=== PATIENT | male | born 1990 | race Caucasian/White ===

== ENCOUNTER → 2024-01-28 14:48 | Outpatient (BNVA) | payer SELFPAY | PROVIDERS: Visit Provider Physician Assistant Medical | DX: Z02.79 Encounter for issue of other medical certificate (principal) ==

== ENCOUNTER → 2024-08-26 10:26 | Outpatient (BNVA) | payer SELFPAY | PROVIDERS: Visit Provider Physician Assistant Medical | DX: Z02.79 Encounter for issue of other medical certificate (principal) ==

== ENCOUNTER 2025-04-13 09:27 | Outpatient (AMB) | payer MEDICARE, SELFPAY ==
--- NOTE | 2025-04-13 10:21 | A.OFFPC_ITS ---
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 ?? Prior PCP:? No recent PCP Last office visit/CPE:? Many yrs Acute issue(s):? Est Care ?? PMHx:? Denies SurgHx:? None FHx:? Dad: DM. Mom: Unknown. SocHx: Nonsmoker, EtOH: None. No drugs PFSH Family History (Updated 04/13/25 @ 10:26 by CHIARA Koenig) Father Diabetes Social History (Updated 04/13/25 @ 10:26 by CHIARA Koenig) Housing: Apartment Patient Tobacco Use Status: Never used Tobacco e-Cigarette/Vaping Use: Never Used Second Hand Smoke Exposure: Yes Use of substances other than those prescribed or required for medical reasons: No service: No Current occupational status: employed Current occupation: public transit bus driver Current occupational exposures/hazards: No Cognitive needs: No Hearing needs: No Vision needs: Yes Questionnaire PHQ-9 Over the last 2 weeks, how often have you been bothered by any of the following problems? 1. Little interest or pleasure in doing things: not at all 2. Feeling down, depressed, or hopeless: not at all 3. Trouble falling or staying asleep, or sleeping too much: not at all 4. Feeling tired or having little energy: not at all 5. Poor appetite or overeating: not at all 6. Feeling bad about yourself - or that you are a failure or have let yourself or your family down: not at all 7. Trouble concentrating on things, such as reading the newspaper or watching television: not at all 8. Moving or speaking so slowly that other people could have noticed. Or the opposite - being so fidgety or restless that you have been moving around a lot more than usual: not at all 9. Thoughts that you would be better off or of hurting yourself in some way: not at all Total score: 0 Depression Screening Interpretation: Negative Depression Screening Done: Yes 40498 - PHQ-9 Billing: Yes Source: Developed by Drs. Jamaal Marte, Yazmin Dangelo, Alex Phillips and colleagues, with an educational hill from [employer]. Thrive Questionnaire Date Thrive assessed: 04/13/25 I am a: Patient What is your living situation today?: I have a steady place to live Within the past 12 months, did the food you bought not last and you didn't have the money to get more?: Never true Within the past 12 months, did you worry whether your food would run out before you got money to buy more?: Never true Do you have trouble paying for medicines?: No Do you have trouble getting transportation to medical appointments?: No Do you have trouble paying your heating and electricity bill?: No Do you have trouble taking care of your child, family member or friend?: No Do you have trouble with day-to-day activities such as bathing, preparing meals, shopping, managing finances, etc.?: No Are you currently unemployed and looking for a job?: No Are you interested in more education?: No Please select the resources that you would like help with: None Currently or been in a relationship where the following occur: No concerns reported THRIVE Score: 0 AUDIT C Alcohol Use Questionnaire (AUDIT-C) 1. How often do you have a drink containing alcohol?: Never 3. How often do you have six or more drinks on one occasion?: Never Total Score: 0 Score Reviewed/Action Taken: No RANDI-7 AMB Questionnaire RANDI-7 Date RANDI - 7 assessed: 04/13/25 Feeling nervous, anxious, or on edge: 0 = Not at all Not being able to stop or control worryin = Not at all Worrying too much about different things: 0 = Not at all Trouble relaxin = Not at all Being so restless that it is hard to sit still: 0 = Not at all Becoming easily annoyed or irritable: 0 = Not at all Feeling afraid as if something awful might happen: 0 = Not at all Total RANDI-7 score (0-4 normal; 5-9 mild; 10-14 moderate; 15-21 severe): 0 Source: Developed by Drs. Jamaal Marte, Yazmin Dangelo, Alex Phillips and colleagues, with an educational hill from [employer]. RANDI-7 Assessment Billing RANDI-7 Assessment Tool: RANDI-7 Assessment 49808 Physical exam (Primary Care) Vital Signs: Last Vital Signs Temp 98.7 F 04/13/25 10:27 Pulse 65 04/13/25 10:27 Resp 16 04/13/25 10:27 BP 100/80 04/13/25 10:27 Pulse Ox 98 04/13/25 10:27 Oxygen Delivery Method Room Air 04/13/25 10:27 BMI result Body Mass Index 27.9 Tobacco/Smoking Status: Tobacco use Status Tobacco use date assessed 04/13/25 04/13/25 10:31 Patient Tobacco Use Status Never used Tobacco 04/13/25 10:31 e-Cigarette/Vaping Use Never Used 04/13/25 10:31 PHQ-9: PHQ-9 Score PHQ-9: Total score 0 04/13/25 10:49 Depression Screening Interpretation: Negative Thrive Assessment: Date of Thrive Assessment Date Thrive assessed 04/13/25 04/13/25 10:31 Currently or been in a relationship where the following occur: No concerns reported Coding Level of Care Code New Pt Level 3 (63515) Diagnoses Screening for STD (sexually transmitted disease) Z11.3 Adult general medical exam Z00.00 Additional Codes RANDI-7 Assessment Billing - RANDI-7 Assessment Tool: RANDI-7 Assessment 33384 ([id number]) PHQ-9 - 63585 - PHQ-9 Billing: Yes ([id number]) Assessment & Plan Assessment & Plan (1) Screening for STD (sexually transmitted disease): Code(s): Z11.3 - Encounter for screening for infections with a predominantly sexual mode of transmission Category: Medical Plan: Asymptomatic Will run test for STD/STI (2) Adult general medical exam: Code(s): Z00.00 - Encounter for general adult medical examination without abnormal findings Category: Medical Plan: Exam today within normal limits Encouraged healthy diet with active lifestyle and plenty of exercise Will review lab work with patient at upcoming appointment Orders: Orders Comprehensive [place]. Panel Fast Today Z00.00 - Encounter for general adult medical examination without abnormal findings Complete Blood Count Auto Diff Today Z00.00 - Encounter for general adult medical examination without abnormal findings Microalbumin, Random (w Creat) Today I10 - Essential (primary) hypertension UA CC w/rflx Micro + Cult Today Z00.00 - Encounter for general adult medical examination without abnormal findings Hepatitis B,C Profile Today Z11.3 - Encounter for screening for infections with a predominantly sexual mode of transmission HIV Ab/Ag Today Z11.3 - Encounter for screening for infections with a predominantly sexual mode of transmission Syphilis Screen Today Z11.3 - Encounter for screening for infections with a predominantly sexual mode of transmission TSH reflex Free T4 Today Z00.00 - Encounter for general adult medical examination without abnormal findings Lipid Panel Today Z00.00 - Encounter for general adult medical examination without abnormal findings CT NG by PCR Urine Today Z11.3 - Encounter for screening for infections with a predominantly sexual mode of transmission
[2025-04-13 10:27] VITALS: BP 100/80; PULSE 65; RESP 16; TEMP 37.1; O2SAT 98; BMI 27.9
== END 2025-04-13 11:07 | disposition home or self-care (01) ==
LOC: HO.HMCFM 09:28
PROVIDERS: PCP Family Medicine; Visit Provider Family Medicine
DX: Z11.3 Encounter for screening for infections with a predominantly sexual mode of transmission (principal); Z00.00 Encounter for general adult medical examination without abnormal findings

== ENCOUNTER 2025-04-13 09:27 | Outpatient (REF) | payer MEDICARE, SELFPAY ==
[2025-04-13 14:13] LABS: MANUAL DIFF FLAG NO
[2025-04-13 14:17] LABS: Hematocrit 48.4 % (42.0-52.0); Hemoglobin 16.3 g/dl (14.0-18.0); Imm Gran Abs Auto 0.04 X10*3/uL (0.00-0.03); Imm Gran Pct Auto 0.7 % (0.0-0.4); Lymphocytes Absolute Auto 1.9 X10*3/uL (1.2-4.9); Mean Corpuscular HGB Conc 33.7 g/dl (31.0-36.0); Mean Corpuscular Hemoglobin 29.6 pg (27.0-33.0); Mean Corpuscular Volume 87.8 fL (80.0-98.0); NRBC Abs Auto 0.000 X10*3/uL (0.0-0.012); NRBC Pct Auto 0.0 /100WBC (0.0-0.2); Platelet Count 246 X10*3/uL (160-400); Red Blood Count 5.51 X10*6/uL (4.60-5.80); White Blood Count 5.6 X10*3/uL (4.8-10.8)
[2025-04-13 14:32] LABS: Appearance Urine Cloudy; Glucose Urine UA Negative (Negative); PH 8.0 (5.0-9.0); Specific Gravity - Urine 1.020 (1.005-1.025)
[2025-04-13 14:38] LABS: Alanine Aminotransferase 46 U/L (0-40); Albumin Level 5.1 g/dL (3.5-5.0); Alkaline Phosphatase 78 U/L (39-117); Anion Gap 9 (12-20); Aspartate Amino Transferase 46 U/L (5-37); Blood Urea Nitrogen 13 mg/dL (9-16); Calcium 9.9 mg/dL (8.4-10.2); Carbon Dioxide 32 mmol/L (22-29); Chloride 104 mmol/L (96-108); Cholesterol 254 mg/dL (<200); Estimated Glomerular Filt Rate > 60; HDL Cholesterol 49 mg/dL (>40); Potassium 3.8 mmol/L (3.3-5.1); Sodium 141 mmol/L (135-145); Total Protein 8.1 g/dL (6.5-8.0); Triglycerides 170 mg/dL (<150)
[2025-04-13 14:39] LABS: Microalbum/Creatinine Ratio Ur 3.7 ug/mg cr (<30)
[2025-04-13 15:38] LABS: CT PCR Urine NOT DETECTED (Not Detect.); NG PCR Urine NOT DETECTED (Not Detect.)
[2025-04-14 07:45] LABS: Syphilis Screen Nonreactive (Nonreactive)
[2025-04-14 08:21] LABS: HBS Num1 123.14 mIU/mL (0-7.99); HBc Num1 0.14 S/CO (0.00-0.79); HBsAGNum1 0.41 S/CO (0.00-0.99); HIV Num 1 0.05 S/CO (0.00-0.99); Hepatitis B Surface Antigen Negative (Negative); ~HepC Num1 0.25 S/CO (0.00-0.79); ~Hepatitis B Surface Antibody REACTIVE (Nonreactive); ~Hepatitis C Antibody Nonreactive (Nonreactive)
== END 2025-04-13 09:28 | disposition home or self-care (01) ==
LOC: HO.WFDLDS 09:27
PROVIDERS: PCP Family Medicine; Visit Provider Family Medicine
DX: Z00.00 Encounter for general adult medical examination without abnormal findings (principal); I10 Essential (primary) hypertension; Z20.2 Contact with and (suspected) exposure to infections with a predominantly sexual mode of transmission
CPT/HCPCS: 80053; 80061; 81003; 82043; 82570; 84443; 85025; 86704; 86706; 86780; 86803; 87340; 87389; 87491; 87591; 96127; 99202

== ENCOUNTER 2025-05-16 17:04 | Outpatient (AMB) | payer MEDICARE, SELFPAY ==
--- NOTE | 2025-05-16 17:01 | MHC.PC.OV ---
Intake Visit Reasons: f/u CPE-labs via telemedicine Intake Note: Goyo presents in the office today for a telehealth follow up to his labs. Student Counselor Required: No Allergies No Known Allergies Allergy (Verified 05/16/25 17:02) Medication List - Last Reconciled 05/16/25 by Adama Caldera MD No Known Home Meds Tobacco use date assessed: 05/16/25 Dental Screening Dental Screen Date: 05/16/25 Did you have a dental visit in the last 12 months?: No Did you have a dental problem in the last 6 months where you did not have access to dental care?: No Was dental information given to patient?: Patient declined HPI f/u CPE-labs via telemedicine HPI Details 34 y/o male presents to f/u labs via telemed. Labs drawn 04/13/25. Reviewed labs with pt. Elevated liver enzymes - AST 46, ALT 46. Triglycerides 170. TC 254. LDL 171. HDL 49. HPI Comments History of Present Illness Details Documentation assistance for Adama Caldera MD, was provided by Stalin Blum,? Material Controller on 05/16/2025 at 5:33 PM EST. I, Dr. Caldera, have read, observed, and verified documentation. ?? 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 Jamaal Marte, Yazmin Dangelo, Alex Phillips and colleagues, with an educational hill from [employer]. Review of Systems Const Denies chills, Denies fatigue, Denies fever(s), Denies headache(s) and Denies weakness ENT Denies dizziness and Denies headache(s) Card Denies dyspnea Resp Denies cough, Denies dyspnea, Denies wheezing and Denies other (shortness of breath) Musc Denies numbness and Denies tingling Neuro Denies dizziness, Denies headache(s), Denies numbness, Denies tingling and Denies weakness Psych Denies anxiety and Denies depression Endo Denies fatigue Aller/Immun Denies wheezing Physical exam (Primary Care) Tobacco/Smoking Status: Tobacco use Status Tobacco use date assessed 05/16/25 05/16/25 17:03 Patient Tobacco Use Status Never used Tobacco 05/16/25 17:03 e-Cigarette/Vaping Use Never Used 05/16/25 17:03 Thrive Assessment: Date of Thrive Assessment Date Thrive assessed 04/13/25 05/16/25 17:03 Telehealth Telehealth Telehealth Platform: Telephone Location of provider rendering services: practice address Location of patient: address on file Patient Identification confirmed using: Name, : Yes Telehealth method: voice only Patient verbally consented to treatment: Yes Patient verbally consented to billing insurance company: Yes Patient informed of any privacy concerns related to visit: Yes Minutes spent on Phone/Video with Pt.: 10 Coding Level of Care Code Tele Est Pt Level 2 (84744) Diagnoses Elevated liver enzymes R74.8 Hypercholesteremia E78.00 Assessment & Plan Assessment & Plan (1) Elevated liver enzymes: Code(s): R74.8 - Abnormal levels of other serum enzymes Category: Medical Plan: AST and ALT liver enzymes are elevated. Encouraged some weight loss and good hydration. Will recheck in 2 months. If still elevated or higher, will check an ultrasound (2) Hypercholesteremia: Code(s): E78.00 - Pure hypercholesterolemia, unspecified Category: Medical Plan: LDL cholesterol is significantly elevated Work on a diet low in saturated fats and cholesterol Will recheck in 2 months. If significantly improved, we should consider medication and this was discussed with the patient today. Orders: Orders Lipid Panel Today E78.00 - Pure hypercholesterolemia, unspecified, Z00.00 - Encounter for general adult medical examination without abnormal findings Comprehensive [place]. Panel Fast Today R74.8 - Abnormal levels of other serum enzymes, Z00.00 - Encounter for general adult medical examination without abnormal findings
== END 2025-05-16 17:05 | disposition home or self-care (01) ==
LOC: HO.HMCFM 17:04
PROVIDERS: PCP Family Medicine; Visit Provider Family Medicine
DX: R74.8 Abnormal levels of other serum enzymes (principal); E78.00 Pure hypercholesterolemia, unspecified